=== PATIENT | male | born 1955 | race Caucasian/White ===

== ENCOUNTER 2016-09-06 07:23 | Day surgery (SDC) | payer OTHER ==
[2016-08-29 12:56] VITALS: BMI 28.3
[2016-09-06] MEDS ORDERED: PROPOFOL 20 ML ONE ×2 (07:28)
[2016-09-06 09:05] VITALS: PULSE 58; TEMP 98.2
[2016-09-06 09:31] VITALS: BP 121/68
--- NOTE | 2016-09-10 12:40 | PATH ---
Surgical Pathology Report Patient Name: RODRI [facility]. Rec. #: [id number] /Age/Gender: 1955 (Age: 61) / M Account: [id number] Location: [facility]-ENDOSCOPY Taken: 09/06/2016 Received: 09/06/2016 Reported: 09/10/2016 Physicians: Xu Akbar M.D. Specimen(s) Received PROXIMAL RIGHT COLON BX Clinical History History of polyps Diverticulosis, polyp Final Diagnosis PROXIMAL RIGHT COLON, POLYP, POLYPECTOMY: TUBULAR ADENOMA. Electronically Signed Meera Albarran M.D. Gross Description Received in formalin, labeled "proximal right colon" is a ortez, polypoid portion of soft tissue measuring 0.5 cm. in greatest dimension. The specimen is submitted in toto in one cassette. 09/06/201609/06/2016
== END 2016-09-06 09:32 | disposition home or self-care (01) ==
LOC: FASU-ENDO 07:23
PROVIDERS: ATTEND Internal Medicine Gastroenterology
PROC: 0DBK8ZX Excision of Ascending Colon, Via Natural or Artificial Opening Endoscopic, Diagnostic (ICD-10-PCS; principal; 2016-09-06 08:37)
DX: Z12.11 Encounter for screening for malignant neoplasm of colon (principal); Z86.010 Personal history of colon polyps; D12.2 Benign neoplasm of ascending colon; K57.30 Diverticulosis of large intestine without perforation or abscess without bleeding
CPT/HCPCS: 88305-TC